=== PATIENT | male | born 1985 | race Two or more races ===

== ENCOUNTER 2024-12-29 15:32 | Emergency (ER) | payer MEDICAID, SELFPAY ==
[2024-12-29 15:40] VITALS: BP 115/60; PULSE 120; PULSE 126; RESP 16; RESP 18; TEMP 36.3; O2SAT 94; O2SAT 97
[2024-12-29 15:41] VITALS: BMI 38.9
[2024-12-29 16:04] VITALS: BP 116/65; PULSE 106; RESP 20; TEMP 37.1; O2SAT 96
--- NOTE | 2024-12-29 16:29 | PD.EDALCOH ---
ED Alcohol RME/HPI General Chief Complaint: Alcohol Stated Complaint: INTOXICATED Time Seen by Provider: 12/29/24 16:02 Source: patient Arrival date/time: 12/29/24 15:32 39-year-old male presents to the emergency department under the influence of alcohol. Patient has no concerns patient does not answer my questions he is on his electronic device listening to music. Patient has a history of alcoholism. After asking him multiple times he denies any chest pain, dyspnea no fever, cough, shortness of breath, chest pain, chills, abdominal pain, diarrhea, dysuria, hematuria, hematochezia, melena, focal weakness, fall, blunt trauma, loss of consciousness, incontinence. Patient requesting refills on medication however he does not remember medication refills. He reports he was unable to make an appointment with his PCP prompting his ED visit today. Mode of arrival: ambulatory Review of Systems Review of Systems Systems Reviewed: All systems reviewed, normal except as documented Narrative Review of Systems: Unable to obtain due to intoxication of alcohol ED Exam Narrative Physical exam: General: Mildly disheveled 39-year-old male Sittiing in Exam table in no acute distress, answering questions appropriately HENT: normocephalic, atraumatic, EOMI, PERRLA, moist mucous membranes Chest: chest wall is nontender Cardiac: regular rate and rhythm, normal S1 and S2, no murmurs, rubs, or gallops, capillary refill ?2 seconds Pulmonary: clear to auscultation bilaterally, no wheezing, crackles, or rhonchi Abdominal: active bowel sounds, soft, nontender, nondistended Neuro: A&OX3, CN II-XII intact, sensation grossly intact bilaterally in UE and LE. Skin: no rashes, no ecchymosis Ext: no lower extremity edema Course Quality Measures none Vital Signs Vital signs: Vital Signs Temperature 97.4 F 12/29/24 15:40 Pulse Rate 120 H 12/29/24 15:40 Respiratory Rate 18 12/29/24 15:40 Blood Pressure 115/60 12/29/24 15:40 Pulse Oximetry (%) 94 L 12/29/24 15:40 Oxygen Delivery Method Room Air 12/29/24 15:40 Discharge Plan Plan Patient Disposition: HOME (Self Care) Patient condition on transfer: Stable Prescriptions/Referrals Referrals: No Primary/Family,Physician [Primary Care Provider] - In 1 week Problem List Clinical Impression: Alcoholic intoxication Patient/Caregiver Discharge Instructions Discharge Activity: activity as tolerated Education Materials: Social Drinking vs Problem Drinking, ED Alcohol Intoxication Additional Instructions: Please follow-up with your primary doctor or clinic as directed. Please attempt to stop drinking To the emergency department this any worsening symptoms or change in condition. Print Language: Haitian Stand Alone Forms: [facility] Award Info., Patient Portal Info Letter EMILY/KRAIG Supervising Physician JESUS MANUEL Supervising Physician: Dr Blanca De Dios MDM Narrative MDM Narrative: Advised patient to discontinue alcohol slowly. Advised to make an appointment with his PCP for refills on his medication He does not have a medication list, unable to currently refill his medications today. Advised if he has any changes in condition please return to the emergency department this any worsening symptoms and condition. Patient has no signs of withdrawals. And no other complaints. Patient data External records reviewed:: [facility] previous records Clinical information provided by:: patient Social determinants that could affect healthcare access:: none Patient has the following chronic illnesses:: Unknown How is presenting disease/condition affected by chronic disease/condition?: no chronic disease Evaluation data The following diagnostics were reviewed and interpreted by me:: other (specify) Lab and/or radiology exams considered but not ordered:: No Interpretation Summary: None Medications / Prescriptions Medications or Prescriptions considered but not ordered:: No Medication administrations:: None Consultations Consultation(s) initiated? (list below): No Diagnosis Differential diagnosis alcohol: other (Alcohol intoxication, requesting medication refills) Most likely diagnosis given after review of the tests above:: Alcohol intoxication, requesting medication refills Admission Indicated Admission indicated?: not indicated Admission Request Was there a request for admission?: No Disposition Plan Disposition Plan: Discharge Discharge Attestation Discharge Attestation: The patient and all family members were given an opportunity to ask questions and understood the discharge instructions. Discharge instructions specifically effects, indications for sooner follow up or return to the emergency department, and the expected course of current diagnosis. Patient condition: Stable
[2024-12-29 17:23] VITALS: BP 126/72; PULSE 117; RESP 18; TEMP 37.3; O2SAT 97
--- NOTE | 2024-12-29 19:03 | PC.NURSE ---
no answer at er lobby or outside er.
--- NOTE | 2024-12-29 22:26 | PC.NURSE ---
Patient stated he was released from residential ([facility]) and has not taken his mental medications . Patient unable to verify dose of medications. Patient lives in [facility] and is provided services with [facility] . Patient was able to reach his case a prabhjotkeny Jessenia at [phone], whom this technical publications writer spoke with. CM verified patient on Prozac 20mg QD, Trazadone 100mg QHS, Prazosin 2mg QHS. 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 CM understood that patient would be discharged from hospital. Patient given address and information to homeless shelters for the night and verbalized understanding that Cm would be in [place] near [facility] in morning to pick him up. Patient eloped prior to receiving medications and discharge paperwork.
== END 2024-12-29 19:05 | disposition home or self-care (01) ==
PROVIDERS: Emergency Provider Emergency Medicine
DX: F10.129 Alcohol abuse with intoxication, unspecified (principal); Z76.0 Encounter for issue of repeat prescription
CPT/HCPCS: 99283

== ENCOUNTER 2024-12-30 03:20 | Emergency (ER) | payer MEDICAID, SELFPAY ==
[2024-12-30 03:29] VITALS: BP 124/78; PULSE 89; RESP 18; TEMP 37; O2SAT 96; BMI 38.0
--- NOTE | 2024-12-30 03:59 | PD.EDRME ---
Rapid Medical Screening Exam RME Arrival date/time: 12/30/24 03:20 39M with history of alcohol use presents to ED needing med refills but he isn't sure what meds he needs. Patient was here yesterday and was supposed to wait for case management in the morning, but eloped. Patient is now back and has no complaints. Chief Complaint: General Adult/Misc Complain Vital signs: Vital Signs Temperature 98.6 F 12/30/24 03:29 Pulse Rate 89 12/30/24 03:29 Respiratory Rate 18 12/30/24 03:29 Blood Pressure 124/78 12/30/24 03:29 Pulse Oximetry (%) 96 12/30/24 03:29 Oxygen Delivery Method Room Air 12/30/24 03:29
--- NOTE | 2024-12-30 08:17 | PC.CC ---
Truck Technician (ROYAL) Dali verified with practice clinician-Lissy. Patient does not need social worker delinquency prevention as a plan was established last night. Patient's mental health CM will come and pick him up at [facility], then take him to [facility] in [place] for stabilization.
--- NOTE | 2024-12-30 11:43 | PC.NURSE ---
N/A in lobby or outside of ED.
--- NOTE | 2024-12-30 12:08 | PC.NURSE ---
patient eloped from the lobby
== END 2024-12-30 12:09 | disposition left against medical advice (07) ==
LOC: SERX 03:56
PROVIDERS: Emergency Provider Emergency Medicine
DX: Z76.0 Encounter for issue of repeat prescription (principal); F10.90 Alcohol use, unspecified, uncomplicated; Z53.29 Procedure and treatment not carried out because of patient's decision for other reasons
CPT/HCPCS: 99281